=== PATIENT | male | born 1980 | race Caucasian/White ===

== ENCOUNTER 2023-04-29 08:29 | Emergency (ER) | payer BC, SELFPAY ==
[2023-04-29 08:57] VITALS: BP 134/84; PULSE 80; RESP 16; TEMP 36.6; O2SAT 98; BMI 25.0
--- NOTE | 2023-04-29 09:00 | ED.GENADULT ---
HPI - General Adult General Chief complaint: Neck Pain/Injury Stated complaint: neck pain issues Time Seen by Provider: 04/29/23 08:59 Source: patient Mode of arrival: ambulatory Limitations: no limitations History of Present Illness HPI narrative: Patient is a 43-year-old male with known osteoarthritis of the cervical spine presenting to the ED with complaint of worsening right lateral neck pain for the past 2 days. States he has seen his PCP for the same complaint, has had x-rays and has a scheduled appointment for follow-up with a specialist. 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 States 2 days ago he was performing gentle stretching exercises in bed and felt a pulling sensation and then increased pain since that time. Has been alternating Tylenol and ibuprofen with little relief. States he recently finished a course prednisone for lumbar disc herniation while waiting to see Dr. Jones. Reports pain radiates to right shoulder but denies radiation of pain down right arm. Denies any weakness, numbness, tingling to right arm. Denies headaches or changes in vision. Denies fevers. MD complaint: neck pain Onset (ago): day(s) Location: neck Radiation: other (right shoulder) Severity: severe Severity scale (1-10): 9 Quality: aching Pain Consistency: constant Relieving factors: none Exacerbating factors: movement Associated symptoms: denies other symptoms Treatments prior to arrival: NSAID Related Data Previous Rx's Medication Instructions Recorded cyclobenzaprine 5 mg tablet 5 mg PO TID PRN muscle spasm #12 04/29/23 tabs lidocaine 5 % topical patch 1 patch topical DAILY #15 ea 04/29/23 Allergies Allergy/AdvReac Type Severity Reaction Status Date / Time bee pollen [bee stings] Allergy Anaphylaxis Verified 04/29/23 09:12 Review of Systems Review of Systems: As per HPI. Yes all other systems are reviewed and are negative Constitutional: Constitutional: Reports as per HPI [facility] Social History Social History Advance Directives: No Advance Directives Information Provided: No Physical Exam ED Vital Signs: Vital Signs - 24 hr 04/29/23 08:57 Temperature 97.9 F Pulse Rate 80 Respiratory Rate 16 Blood Pressure 134/84 Pulse Oximetry 98 Oxygen Delivery Method Room Air BMI result Body Mass Index 25.0 Vital signs have been reviewed and appear to be correct. Blood pressure normal. Heart rate normal. Respiratory rate normal. Temperature normal. Oxygen saturation normal. Const General: cooperative, healthy appearing and no acute distress Orientation/consciousness: oriented to person, oriented to place, oriented to time and patient oriented x3 Limitations: no limitations HENMT Head: Yes normocephalic and Yes atraumatic Ears: external ears normal General nose exam: Normal external nose present Face and sinus: Yes face symmetric Mouth: oropharynx normal and moist mucous membranes Throat: Yes uvula midline Eyes Pupils: Equal, round and reactive pupils present Neck Neck: Yes normal visual inspection, Yes full ROM, Yes no lymphadenopathy, Yes no meningeal signs, Yes trachea midline, Yes supple and No anterior neck swelling Resp Effort & Inspection: normal respiratory effort and able to speak in complete sentences Auscultation: clear to auscultation bilaterally Cardio Rate: regular rate Rhythm: regular rhythm Heart sounds: S1 normal heart sound present and S2 normal heart sound present GI Palpation (GI): Soft to palpation and nontender Auscultation: normoactive bowel sounds General: Yes no CVA tenderness Back/Spine/Pelvis Back: no CVA tenderness Cervical Spine: cervical ROM normal, No Lhermitte's sign positive, cervical muscular tenderness (right lateral), pain with cervical ROM, No Cervical spine tenderness and No step off deformity Skin General skin exam: elasticity normal and turgor normal Neuro General: oriented to person, oriented to place, oriented to time, patient oriented x3, gait normal, tone normal, moves all extremities, Normal light touch and pain sensation, no meningeal signs, no focal motor deficits, CN's II-XI intact bilaterally and deep tendon reflexes 2+ bilaterally Cranial nerves: Yes Equal, round and reactive pupils present Cognition (Neuro): normal cognition Motor exam (neuro): 5/5 motor strength present throughout, Normal motor muscle tone present throughout and Motor abnormalities not present Extrem General: Yes full ROM, Yes no pedal edema and Yes no calf tenderness Psych Mental Status: mental status grossly normal Affect: normal affect Thought process: Normal thought process present Medical Decision Making Medical Decision Making MDM Narrative: Patient is a 43-year-old male with known osteoarthritis of the cervical spine presenting to the ED with complaint of worsening right lateral neck pain for the past 2 days. On exam patient is awake, A+Ox3, VS WNL, afebrile, normal neurological exam without focal deficits, physical exam findings as above. Given reported symptoms and physical exam findings, initial differential includes cervical muscle strain, osteoarthritis, spondylosis, cervical radiculopathy. Do not suspect cord compression. Imaging deferred as patient recently had imaging with PCP. Will prescribe cyclobenzaprine, lidocaine patches. Advised patient to continue alternating Tylenol and ibuprofen. Instructed patient to follow-up with PCP and keep his follow-up appointment with the specialist regarding steroid injections. Return precautions discussed at bedside. Patient verbalized understanding of and agreement with plan. Differential Diagnosis Differential Diagnoses: The differential diagnosis associated with the presentation includes As per MDM. External Record Review External record reviewed: Inpatient record, Office record and Outpatient record Prescription Management I considered prescription management with: Pain Medication and Other Discharge Plan Discharge Clinical Impression: Cervical muscle strain Qualifiers: Encounter type: initial encounter Qualified Code(s): S16.1XXA - Strain of muscle, fascia and tendon at neck level, initial encounter Patient Disposition: Home, Self-Care Instructions: Cervical Strain (DC) Additional Instructions: You were evaluated in the emergency department with complaint of neck pain. Your pain is likely related to a muscle strain. We recommend taking 600mg ibuprofen or 650mg Tylenol. If necessary, you can alternate these medications every three hours. For example, at noon take Tylenol, then at 3:00 take ibuprofen, then at 6:00 take Tylenol, etc. You are also being prescribed a muscle relaxer which you can use up to every 8 hours as needed. You are being prescribed topical lidocaine patches which he may wear for up to 12 hours in a 24 hour period, do not apply heat directly over the patches. You should follow up with your primary care provider as you may require physical therapy to improve your symptoms. Return to the emergency department if you develop worsening neck pain or stiffness, new weakness, numbness, or tingling to your arm, severe headaches, or any other concerning symptoms. Prescriptions: New cyclobenzaprine 5 mg tablet 5 mg PO TID PRN (Reason: muscle spasm) Qty: 12 0RF lidocaine 5 % adhesive patch,medicated 1 patch topical DAILY Qty: 15 0RF Rx Instructions: leave on most painful area for up to 12 hrs
--- NOTE | 2023-04-29 09:31 | PC.NURSE ---
pt was seen by the provider and made aware of care plan
== END 2023-04-29 09:40 | disposition home or self-care (01) ==
PROVIDERS: Emergency Provider Emergency Medicine; PCP Internal Medicine
DX: S16.1XXA Strain of muscle, fascia and tendon at neck level, initial encounter (principal); X58.XXXA Exposure to other specified factors, initial encounter; Y93.9 Activity, unspecified; Y92.9 Unspecified place or not applicable; Y99.9 Unspecified external cause status; M54.2 Cervicalgia; M47.812 Spondylosis without myelopathy or radiculopathy, cervical region
CPT/HCPCS: 99282

== ENCOUNTER 2023-05-12 09:11 | Outpatient (AMB) | payer BC, SELFPAY ==
--- NOTE | 2023-05-12 09:49 | A.SPINEOV_ITS ---
Intake Intake Visit Reasons: back pain Intake Note: Mr. Sky is here today c/o low back an neck pain. L/Spine MRI done @ [facility]. C/Spine X-ray done @ [facility]/brought discs. Business Systems Manager Required: No Allergies bee pollen [bee stings] Allergy (Verified 04/29/23 09:12) Anaphylaxis Assessment & Plan Assessment & Plan (1) Back pain: Code(s): M54.9 - Dorsalgia, unspecified Plan This is a 43-year-old gentleman who is known to us from a previous L5-S1 left- sided diskectomy done by Dr. Tapia in 2018. He had been doing well until about a month or so ago when he experienced a flare-up of his back pain in his low back. He has good days and bad days but occasionally he will have a day where he is in extreme amount of pain. He will treated with Tylenol. He cannot take anti-inflammatories because of his blood pressure. He has been doing some stretching in the morning. He has been under the guidance of a physical therapist who he knows and has been doing these exercises faithfully. He does not seem to be making much in the way of progress so he came in to see us because of her history of doing previous surgery in the excellent results that he had. He does occasionally get tingling down his left leg. He does report urinary urgency at times. He had an MRI showing with degenerative disc at L5- S1. He is also reporting neck pain. A few weeks ago he turns had the wrong direction and felt pain on the outside part of his neck on the upper region. It feels like it is located in the base of his skull. PMH: History of hypertension, anxiety, low back surgery, hernia surgery, hand surgery, previous history of alcohol abuse Social hx: He does not smoke Medications: Klonopin, lamotrigine, amlodipine, Prevacid, Tylenol Allergies: Bee stings Physical exam: He is awake alert oriented no acute distress, gait, strength are normal. Imaging review: Lumbar MRI done at [facility] shows normal alignment, he has mild to moderately degenerative disc at L5-S1 with more endplate changes and Modic changes seen on the left side. There is no nerve c ompression that I can see despite the report suggesting that there could be some in the L5 foramen. Impression: 43-year-old gentleman with history of a previous back surgery with us 5 her 6 years ago who did very well until about a month and a half ago or so when he experienced acute onset of low back pain. It sounds more like a muscular strain to me. His MRI shows degenerative disc. This usually presents with chronic low back pain over months to years. I reassured him that I think this could just be a muscular strain but that if it does not go away in the next few months we should see him back in the office and we can discuss surgical treatment. I told him he would have to undergo physical therapy as typically insurances would not approve any kind of surgery without that. He is going to contact his friend who is the physical therapist and have dedicated appointments with him. He will continue using the Tylenol. We will re-evaluate in 3 months. With regard to his neck, it sounds like a muscular strain to me, his plain film x-rays at [place] show stable arthritis in the mid cervical regions compared to x-rays done 5 her 6 years ago. Thank you for allowing us to care for your patient. The total time spent with this visit with this patient was 45 minutes reviewing history, physical exam, cervical and lumbar imaging review, and implementation of treatment plan or further diagnostic testing Estuardo Tapia MD,PhD [facility] Coding Level of Care Code New Pt Level 4 (80968) Diagnoses Back pain M54.9
== END 2023-05-12 09:56 | disposition home or self-care (01) ==
PROVIDERS: PCP Internal Medicine; Visit Provider Physician Assistant
DX: M54.9 Dorsalgia, unspecified (principal)
CPT/HCPCS: 99204

== ENCOUNTER → 2023-05-12 09:11 | Outpatient (BNVA) | payer BC, SELFPAY | PROVIDERS: PCP Internal Medicine; Visit Provider Physician Assistant ==